=== PATIENT | female | born 1990 | race African-American/Black ===

== ENCOUNTER 2016-10-30 20:15 | Emergency (ER) | payer OTHER ==
[~2016-10-30] VITALS: Ht 172.7 cm; Wt 70.3 kg
--- NOTE | ~2016-10-30 | EKG ---
[address] [place] [address] ELECTROCARDIOGRAM REPORT Name: ROSALVA PEARSON Room #: [facility] [id number] Admission: 10/30/16 Attend Phys: Discharge: 10/30/16 Date of : [birth year] Report #: [id number] THIS REPORT FOR: //name// [facility] ED Test Date: 2016-10-30 Test Time: 20:25:42 Pat Name: ROSALVA PEARSON Department: Room: Gender: F Confidential Secretary: ALVIN : 1990 Requested By: Minerva Dave Order Number: [id number] MD: Jovanni Villalba Measurements Intervals [place] Rate: 74 P: 23 CT: 144 QRS: 1 QRSD: 76 T: 26 QT: 377 QTc: 419 Interpretive Statements Sinus rhythm RSR' in V1 or V2, right VCD or RVH No previous ECG available for comparison Electronically Signed On 11-01-2016 14:11:03 [employer] INTERN by Jovanni Villalba [email or web address] <ELECTRONICALLY SIGNED> By: Jovanni Villalba MD, [facility] 11/01/16 1411 24 24 Jovanni Villalba MD, FACC /EPI
[2016-10-30] MEDS ORDERED: LEXAPRO 10 MG T10 M1 PO (20:47)
[2016-10-30] MEDS ORDERED: ATIVAN1 MG PO (22:06)
[2016-10-30 22:17] VITALS: BP 145/99
== END 2016-10-30 22:18 | disposition home or self-care (01) ==
LOC: ER 20:15
DX: R07.89 Other chest pain (principal); F41.9 Anxiety disorder, unspecified; F17.210 Nicotine dependence, cigarettes, uncomplicated; F10.99 Alcohol use, unspecified with unspecified alcohol-induced disorder